=== PATIENT | male | born 1950 | race Caucasian/White ===

== ENCOUNTER → 2016-10-15 | Outpatient (CLI) | payer MEDICARE, OTHER ==
--- NOTE | 2016-10-15 10:07 | RADIOLOGY REPORT (SQ) ---
EXAM DESCRIPTION: CHEST PA/LATERAL COMPLETED DATE/TIME: 10/15/2016 9:55 am REASON FOR STUDY: PRE OP COMPARISON: None. EXAM PARAMETERS: NUMBER OF VIEWS: two views TECHNIQUE: Digital Frontal and Lateral radiographic views of the chest acquired. RADIATION DOSE: NA LIMITATIONS: none FINDINGS: LUNGS AND PLEURA: Scarring noted in the left lung base adjacent to the cardiac silhouette. There is mild interstitial prominence noted lung bases which could represent underlying chronic int erstitial disease. No focal consolidations. No pneumothorax. MEDIASTINUM AND HILAR STRUCTURES: No masses or contour abnormalities. HEART AND VASCULAR STRUCTURES: Heart normal size. No evidence for failure. BONES: No acute findings. HARDWARE: None in the chest. OTHER: No other significant finding. IMPRESSION: Mild chronic changes noted in the lung bases. No focal infiltrate. TECHNICAL DOCUMENTATION: JOB ID: [id number] [employer]- All Rights Reserved
[2016-10-15 10:08] LABS: ABSOLUTE BASOPHILS # (AUTO) 0.1 10^3/uL (0.0-0.2); ABSOLUTE EOSINOPHILS # (AUTO) 0.3 10^3/uL (0.0-0.6); ABSOLUTE LYMPHOCYTES (AUTO) 1.9 10^3/uL (0.5-4.7); ABSOLUTE NEUT (AUTO) 5.3 10^3/uL (1.7-8.2); EOSINOPHILS % (AUTO) 3.3 % (0-6); HEMATOCRIT 34.3 % (37.9-51.0); HGB HCT DIFFERENCE -1.3; LYMPHOCYTES % (AUTO) 21.7 % (13-45); MEAN CORPUSCULAR HEMOGLOBIN 24.9 pg (27.0-33.4); MEAN CORPUSCULAR HGB CONC 32.2 g/dL (32.0-36.0); MEAN CORPUSCULAR VOLUME 77 fl (80-97); MONOCYTES % (AUTO) 11.8 % (3-13); RED BLOOD COUNT 4.44 10^6/uL (4.35-5.55); RED CELL DISTRIBUTION WIDTH 17.8 % (11.5-14.0); SEGMENTED NEUTROPHILS % (AUTO) 62.2 % (42-78); WHITE BLOOD COUNT 8.5 10^3/uL (4.0-10.5)
[2016-10-15 10:36] LABS: ANION GAP 11 (5-19); BLOOD UREA NITROGEN 17 mg/dL (7-20); CALCIUM 9.3 mg/dL (8.4-10.2); CARBON DIOXIDE 25 mmol/L (22-30); CHLORIDE 103 mmol/L (98-107); CREATININE RESULT 1.06 mg/dL (0.52-1.25); GLUCOSE 154 mg/dL (75-110); POTASSIUM 4.3 mmol/L (3.6-5.0)
[2016-10-15 10:40] LABS: APPEARANCE,URINE CLEAR; BILIRUBIN,URINE NEGATIVE (NEGATIVE); GLUCOSE, URINE >=500 mg/dL (NEGATIVE); KETONES,URINE NEGATIVE (NEGATIVE); LEUKOCYTE ESTERASE,URINE NEGATIVE (NEGATIVE); NITRITE,URINE NEGATIVE (NEGATIVE); PROTEIN,URINE NEGATIVE (NEGATIVE); URINE SPECIFIC GRAVITY 1.017; UROBILINOGEN,URINE NEGATIVE mg/dL (<2.0)
--- NOTE | 2016-10-15 13:34 | EKG REPORT ---
SEVERITY:- NORMAL ECG - SINUS RHYTHM : Confirmed by: Benoit Killian MD 15-Oct-2016 13:33:33
== END ==
LOC: OD 09:14
PROVIDERS: ATTEND Orthopaedic Surgery
DX: Z01.810 Encounter for preprocedural cardiovascular examination (principal); Z01.812 Encounter for preprocedural laboratory examination; Z01.818 Encounter for other preprocedural examination
CPT/HCPCS: 36415; 71020; 80048; 81001; 85025; 93005; 93010

== ENCOUNTER 2016-11-03 07:00 | Inpatient (IN) | payer OTHER, MEDICARE ==
[~2016-11-03 07:00] MED LIST: BUPIVACAINE INJ/PF LIPOSOME/PF 266 MG/20 ML SDV INJ PRN; CEFAZOLIN INJ 1 GM VIAL IV PRN; IBUPROFEN 800 MG in NORMAL SALINE 250 ML IV PRN; LACTATED RINGERS 1000 ML IV PRN; LANSOPRAZOLE 15 MG TAB.RAP.DR PO PRN; LIDOCAINE 0.5% INJ-PF (5 MG/ML) 50 ML SDV SUBCUT PRN; OXYCODONE HCL SR 10 MG TABLET PO PRN; VANCOMYCIN HCL 1,000 MG in DEXTROSE 5%-WATER 250 ML IV PRN
[2016-11-03] MEDS ORDERED: ONDANSETRON HCL INJ/PF 4 MG/2 ML SDV ONE (07:39)
[2016-11-03] MEDS ORDERED: THROMBIN (BOVINE) TOPICAL 20000 UNIT VIAL ONE (11:38)
[2016-11-03] MEDS ORDERED: THROMBIN (BOVINE) 5000 UNIT EPITAXIS KIT ONE (11:38)
[2016-11-03] MEDS ORDERED: BUPIVACAINE INJ/PF LIPOSOME/PF 266 MG/20 ML SDV ONE (11:39)
[2016-11-03] MEDS ORDERED: KETAMINE HCL INJ 500 MG/10 ML VIAL ONE (12:00)
[2016-11-03] MEDS ORDERED: MIDAZOLAM 2 MG/2 ML INJ ONE (12:00)
[2016-11-03] MEDS ORDERED: TRANEXAMIC ACID INJ/PF 1,000 MG/10 ML SDV IV ONE ×2 (12:01→16:00)
[2016-11-03] MEDS ORDERED: PROPOFOL INJ 200 MG/20 ML VIAL IV ONE (12:01)
[2016-11-03] MEDS ORDERED: EPHEDRINE SULFATE INJ 50 MG/1 ML AMPULE ONE (12:01)
[2016-11-03] MEDS ORDERED: ONDANSETRON HCL INJ/PF 4 MG/2 ML SDV IV PRN (13:45)
[2016-11-03] MEDS ORDERED: DIPHENHYDRAMINE HCL 50 MG/ML VIAL IV PRN ×2 (13:45→13:47)
[2016-11-03] MEDS ORDERED: RINGERS SOLUTION,LACTATED 1,000 ML IV PRN (13:45)
[2016-11-03] MEDS ORDERED: MAG HYDROX/AL HYDROX/SIMETH SUSP 30 ML UDCUP PO PRN (13:45)
[2016-11-03] MEDS ORDERED: ACETAMINOPHEN 325 MG TABLET PO PRN (13:45)
[2016-11-03] MEDS ORDERED: MORPHINE SULFATE 10 MG/ML INJ IV PRN ×3 (13:45→13:47)
[2016-11-03] MEDS ORDERED: MORPHINE SULFATE 10 MG/ML INJ IM PRN (13:45)
[2016-11-03] MEDS ORDERED: ZOLPIDEM TARTRATE 5 MG TABLET PO PRN (13:45)
[2016-11-03] MEDS ORDERED: ONDANSETRON 4 MG TAB.RAPDIS PO PRN (13:45)
--- NOTE | 2016-11-03 13:45 | Operative Report ---
Operative Report DATE OF SURGERY: 11/03/16 PREOPERATIVE DIAGNOSIS: Right knee arthritis OPERATION: Right knee arthroplasty SURGEON: ARMIN WYNN 1ST WELLNESS COORDINATOR: ADELE EDMONDS ANESTHESIA: Spinal TISSUE REMOVED OR ALTERED: Bone to pathology ESTIMATED BLOOD LOSS: 100 PROCEDURE: Implants used: Femur: [place] triathlon #8 CR femur Tibia: 7 tibia Tibial liner: 9 mm CS insert Patella: 38 mm oval patella Procedure with the patient supine on the operating table the right the limb is prepped and draped in a sterile fashion. The limb was elevated for exsanguination and the tourniquet inflated to 280 torr. A standard midline median parapatellar approach the knee is taken. Access is gained to the femoral canal through the intercondylar notch. Intramedullary alignment instrumentation used to resect 10 mm of distal femur in 5 of valgus. Sizing guide indicated a size 8 femur. Appropriate cutting jig is then used to fashion anterior posterior and chamfer cuts. A trial reduction femurs performed and this is judged to be adequate. Attention was next turned to the tibia. Using an extra medullary alignment system 9 millimeters was resected off the lateral tibial plateau. This is sized to a size 7 tibia. A trial reduction was now performed with a 8 femur and a 7 tibia using a 9 millimeters spacer. It is full extension and central patellofemoral tracking. The articular surface the patella was next resected using an oscillating saw. All trial implants were removed. Polymethylmethacrylate is mixed and used to cement the above implants in place. On adequate curing the cement excess cement was removed the tourniquet was deflated hemostasis obtained the wound is then closed in layers using interrupted Vicryl followed by j carlos. A sterile compressive dressing was applied and the patient returned to recovery room in satisfactory condition.
[2016-11-03] MEDS ORDERED: PROMETHAZINE HCL INJ 25 MG/1 ML VIAL IV PRN ×2 (13:47)
[2016-11-03] MEDS ORDERED: OXYCODONE-ACETAMINOPHEN 5-325 MG TABLET PO PRN ×2 (13:47)
--- NOTE | 2016-11-03 15:10 | RADIOLOGY REPORT (SQ) ---
EXAM DESCRIPTION: KNEE RIGHT 2 VIEWS COMPLETED DATE/TIME: 11/03/2016 2:40 pm REASON FOR STUDY: Post OP -Long Cassette in PACU M17.11 UNILATERAL PRIMARY OSTEOARTHRITIS, RIGHT KN EE COMPARISON: None. NUMBER OF VIEWS: Two views. TECHNIQUE: AP and lateral radiographic images acquired of the right knee. LIMITATIONS: None. FINDINGS: Postoperative images show a right hip arthroplasty in good position. IMPRESSION: Right hip arthroplasty good position. TECHNICAL DOCUMENTATION: JOB ID: [id number] [employer]- All Rights Reserved
[2016-11-03] MEDS: SENNOSIDES/DOCUSATE 8.6-50 MG 1 EACH TABLET PO SCH (17:26)
[2016-11-03] MEDS: MORPHINE SULFATE 10 MG/ML INJ IV PRN ×4 (17:27→23:05)
[2016-11-03] MEDS: OXYCODONE HCL IR 5 MG TABLET PO PRN (17:46)
[2016-11-03] MEDS: BUDESONIDE/FORMOTEROL 160-4.5 MCG 60 PUFF/6 GM MDI IH SCH (21:19)
[2016-11-03] MEDS: RIVAROXABAN 10 MG TABLET PO SCH (21:19)
[2016-11-03] MEDS ORDERED: OXYCODONE HCL SR 10 MG TABLET PO SCH (22:00)
[2016-11-03] MEDS: IBUPROFEN 800 MG in NORMAL SALINE 250 ML IV SCH (22:59)
[2016-11-04] MEDS: MORPHINE SULFATE 10 MG/ML INJ IV PRN ×4 (00:50→13:40)
[2016-11-04] MEDS ORDERED: VANCOMYCIN HCL 1,000 MG in DEXTROSE 5%-WATER 250 ML IV ONE (02:00)
[2016-11-04] MEDS: IBUPROFEN 800 MG in NORMAL SALINE 250 ML IV SCH ×3 (05:25→21:24)
[2016-11-04] MEDS: LANSOPRAZOLE 30 MG TAB.RAP.DR PO SCH (05:25)
[2016-11-04 06:19] LABS: HEMATOCRIT 30.1 % (37.9-51.0); HEMOGLOBIN 9.4 g/dL (13.5-17.0); HGB HCT DIFFERENCE -1.9; MEAN CORPUSCULAR HEMOGLOBIN 24.5 pg (27.0-33.4); MEAN CORPUSCULAR HGB CONC 31.2 g/dL (32.0-36.0); MEAN CORPUSCULAR VOLUME 78 fl (80-97); RED BLOOD COUNT 3.84 10^6/uL (4.35-5.55); RED CELL DISTRIBUTION WIDTH 17.5 % (11.5-14.0); WHITE BLOOD COUNT 9.2 10^3/uL (4.0-10.5)
[2016-11-04 06:35] LABS: ANION GAP 8 (5-19); BLOOD UREA NITROGEN 15 mg/dL (7-20); CALCIUM 8.8 mg/dL (8.4-10.2); CARBON DIOXIDE 26 mmol/L (22-30); CHLORIDE 100 mmol/L (98-107); CREATININE RESULT 1.01 mg/dL (0.52-1.25); GLUCOSE 113 mg/dL (75-110); POTASSIUM 4.5 mmol/L (3.6-5.0); SODIUM 133.8 mmol/L (137-145)
--- NOTE | 2016-11-04 07:03 | PDOC PROGRESS REPORT ---
Subjective Progress Note for:: 11/04/16 Subjective:: 66-year-old white male status post a 1 right total knee arthroplasty. Patient was lying comfortably recumbent in hospital bed with surgical compression dressing still in place. Patient reports that his pain is not well controlled and he is requesting medication every hour. He is also experiencing occasional pain in the proximal right lower extremity. Patient was informed that this is the location of the surgical tourniquet and that residual pain can be common due to the pressure applied during surgery. Patient notes that he was not ambulatory yesterday but is working on right lower extremity mobility in his ankle as well as lifting the right lower extremity off the bed. Physical Exam Vital Signs: Temp Pulse Resp BP Pulse Ox 36.8 C 96 17 116/81 94 11/04/16 04:04 11/04/16 04:04 11/04/16 04:04 11/04/16 04:04 11/04/16 04:04 Intake & Output 11/02/16 11/03/16 11/04/16 06:59 06:59 06:59 Intake Total 7250 Output Total 6000 Balance 1250 General appearance: PRESENT: no acute distress, well-developed, well-nourished Head exam: PRESENT: atraumatic, normocephalic Vascular exam: PRESENT: normal capillary refill Additional comments: Patient was nonambulatory postop day 1 but will continue to work with physical therapy to improve mobility and strength of right lower extremity. Neurological exam: PRESENT: alert, awake, oriented to person, oriented to place , oriented to time, oriented to situation, CN II-XII grossly intact. ABSENT: motor sensory deficit Psychiatric exam: PRESENT: appropriate affect, normal mood. ABSENT: homicidal ideation, suicidal ideation Skin exam: PRESENT: dry, intact, warm. ABSENT: cyanosis, rash Results Laboratory Results: 11/04/16 05:27 11/04/16 05:27 11/04/16 11/04/16 05:27 05:27 WBC 9.2 RBC 3.84 L Hgb 9.4 L Hct 30.1 L MCV 78 L MCH 24.5 L MCHC 31.2 L RDW 17.5 H Plt Count 281 Sodium 133.8 L Potassium 4.5 Chloride 100 Carbon Dioxide 26 Anion Gap 8 BUN 15 Creatinine 1.01 Est GFR ( Amer) > 60 Est GFR (Non-Af Amer) > 60 Glucose 113 H Calcium 8.8 Impressions: Knee X-Ray 11/03/16 13:47 IMPRESSION: Right hip arthroplasty good position. Assessment & Plan - Diagnosis (1) Arthritis of right hip Is this a current diagnosis for this admission?: Yes Plan: Patient will continue to work with physical therapy on postop day 1 and 2 and work towards ambulation as well as increasing strength and mobility of right lower extremity. Patient's pain will be controlled by increasing oxycodone dosage. Patient's surgical compression dressing will be removed on postop day 2 and we will work for discharge on this day as well. Patient will then follow- up with [facility] for surgery 2 weeks postoperatively.
[2016-11-04] MEDS: BUDESONIDE/FORMOTEROL 160-4.5 MCG 60 PUFF/6 GM MDI IH SCH ×2 (07:45→21:24)
[2016-11-04] MEDS ORDERED: TIOTROPIUM BROMIDE DPI 5 CAP/KIT (18 MCG/CAP) IH SCH (10:00)
[2016-11-04] MEDS ORDERED: PRENATAL VITAMIN W-O CA NO5/FE FUMARATE/FA CAPSULE PO SCH (10:00)
[2016-11-04] MEDS: OXYCODONE HCL IR 5 MG TABLET PO PRN ×2 (10:17→17:38)
[2016-11-04] MEDS: OXYCODONE HCL SR 40 MG TABLET PO SCH ×2 (10:18→21:24)
[2016-11-04] MEDS: SENNOSIDES/DOCUSATE 8.6-50 MG 1 EACH TABLET PO SCH ×2 (10:19→17:39)
[2016-11-04] MEDS ORDERED: IPRATROPIUM/ALBUTEROL 0.5-2.5 MG/3 ML AMPUL NEB ONE (18:04)
[2016-11-04] MEDS ORDERED: IPRATROPIUM/ALBUTEROL 0.5-2.5 MG/3 ML AMPUL NEB PRN (18:06)
[2016-11-04] MEDS: RIVAROXABAN 10 MG TABLET PO SCH (21:24)
[2016-11-05 02:08] VITALS: BP 145/73
[2016-11-05] MEDS: IBUPROFEN 800 MG in NORMAL SALINE 250 ML IV SCH (05:11)
[2016-11-05] MEDS: LANSOPRAZOLE 30 MG TAB.RAP.DR PO SCH (05:11)
[2016-11-05 06:08] LABS: HEMATOCRIT 28.3 % (37.9-51.0); HGB HCT DIFFERENCE -1.3; MEAN CORPUSCULAR HEMOGLOBIN 24.8 pg (27.0-33.4); MEAN CORPUSCULAR HGB CONC 31.6 g/dL (32.0-36.0); MEAN CORPUSCULAR VOLUME 79 fl (80-97); RED BLOOD COUNT 3.61 10^6/uL (4.35-5.55); RED CELL DISTRIBUTION WIDTH 17.9 % (11.5-14.0); WHITE BLOOD COUNT 12.6 10^3/uL (4.0-10.5)
--- NOTE | 2016-11-05 07:36 | PDOC DISCHARGE SUMMARY ---
General - Admit/Disc Date/PCP Admission Date/Primary Care Provider: 11/03/16 10:09 CARRIE العراقي NP Discharge Date: 11/05/16 - Discharge Diagnosis (1) Arthritis of right knee Is this a current diagnosis for this admission?: Yes - Additional Information Resuscitation Status: Full Code Discharge Diet: As Tolerated, Regular Discharge Activity: Balance Activity w/Rest, No Driving, No tub bath Home Medications: Tiotropium [place] [Spiriva Handihaler 18 mcg/dose (30 Dose)] 2 puff IH DAILY Budesonide/Formoterol Fumarate [Symbicort HFA 160-4.5 mcg Inhaler 6 gm] 2 puff IH Q12 10/28/16 Omeprazole 40 mg PO BID 10/28/16 Oxycodone HCl [Oxy-Ir 5 mg Tablet] 5 mg PO Q6HP PRN tablet 11/05/16 Rivaroxaban [Xarelto 10 mg Tablet] 10 mg PO QHS tablet 11/05/16 History of Present Illness History of Present Illness: JESSICA NI is a 66 year old male with progressive right knee pain and functional disability secondary osteoarthritis. Patient is admitted for elective right knee arthroplasty. Hospital Course Hospital Course: Patient is admitted through the operating where he undergoes an uncomplicated right knee arthroplasty. Is returned to the floor and seen by physical therapy for weightbearing as tolerated ambulation. Initial analgesia is slightly problematic but the patient makes rapid progress with physical therapy thereafter. Subsequently for discharge home with home health nursing, home health physical therapy, rachele bill commode. Physical Exam Vital Signs: Temp Pulse Resp BP Pulse Ox 37.5 C 114 H 18 146/69 H 92 11/05/16 00:54 11/05/16 00:54 11/05/16 00:54 11/05/16 00:54 11/05/16 00:54 Intake & Output 11/04/16 11/05/16 11/06/16 06:59 06:59 06:59 Intake Total 7250 6117 Output Total 6000 200 Balance 1250 5917 General appearance: PRESENT: no acute distress Head exam: PRESENT: normocephalic Respiratory exam: PRESENT: unlabored Cardiovascular exam: PRESENT: RRR Pulses: PRESENT: +1 pedal pulses bilateral Vascular exam: PRESENT: normal capillary refill GI/Abdominal exam: PRESENT: soft Rectal exam: PRESENT: deferred Extremities exam: PRESENT: other - Right lower extremity picot dressing clean dry and intact. There is a small amount of pedal edema. Distal neurovascular examination is intact. Neurological exam: PRESENT: alert, awake, oriented to person, oriented to place , oriented to time, oriented to situation. ABSENT: motor sensory deficit Psychiatric exam: PRESENT: appropriate affect, normal mood. ABSENT: homicidal ideation, suicidal ideation Skin exam: PRESENT: dry, intact, warm. ABSENT: cyanosis, rash Results Laboratory Results: 11/05/16 05:41 11/04/16 05:27 11/05/16 05:41 WBC 12.6 H RBC 3.61 L Hgb 9.0 L Hct 28.3 L MCV 79 L MCH 24.8 L MCHC 31.6 L RDW 17.9 H Plt Count 263 Impressions: Knee X-Ray 11/03/16 13:47 IMPRESSION: Right hip arthroplasty good position. Status: Imported from PACS Plan Discharge Plan: 66-year-old white male status post right knee arthroplasty now for discharge home with home health nursing, home health physical therapy, wheeled walker, bedside commode. Visiting nurse service to change the right knee picot dressing on postop day 7 and replaced with an OpSite. Follow-up will be with Dr. Nassar in the [facility] for surgery in 2 weeks for staple removal.
== END 2016-11-05 08:47 | disposition home health service (06) | DRG 470 ==
LOC: INOR 10:09 → 4S 15:20
PROVIDERS: ADMIT Orthopaedic Surgery; ATTEND Orthopaedic Surgery
PROC: 0SRC0J9 Replacement of Right Knee Joint with Synthetic Substitute, Cemented, Open Approach (ICD-10-PCS; principal; 2016-11-03 12:30)
DX: M17.11 Unilateral primary osteoarthritis, right knee (principal); J44.9 Chronic obstructive pulmonary disease, unspecified; K21.9 Gastro-esophageal reflux disease without esophagitis; F17.210 Nicotine dependence, cigarettes, uncomplicated
CPT/HCPCS: 01402; 36415; 80048; 82962; 85027; 88304; 88311; 94640; 94799; C2625; C9290; G8978-GP; G8979-GP; G8987-GO; G8988-GO; J0690; J1741; J2250; J2270; J2405; J2704; J3370; J3490; J7050; J7060; J7620; S0119

== ENCOUNTER → 2017-09-09 | Outpatient (CLI) | payer MEDICARE, OTHER ==
--- NOTE | 2017-09-09 12:31 | RADIOLOGY REPORT (SQ) ---
EXAM DESCRIPTION: SMALL BOWEL SERIES COMPLETED DATE/TIME: 09/09/2017 11:47 am REASON FOR STUDY: IRON DEFICIENCY ANEMIA, UNSPECIFIED (D50.9) D50.9 IRON DEFICIENCY ANEMIA, UNSPECI FIED COMPARISON: None. FLUOROSCOPY TIME: 1 minutes 23 seconds 22 digital images saved to PACS. LIMITATIONS: None. PROCEDURE: Initial senior director image of abdomen acquired, followed by administration of oral contrast. Se rial radiographic images acquired. Fluoroscopic images recorded of the terminal ileum and other karissa cated areas. All images stored on PACS. FINDINGS: EVP OF [employer] KUB: Non-obstructive bowel pattern. No abnormal calcifications. Soft tissue planes normal. STOMACH: No significant reflux. Normal distention without abnormality. DUODENUM: Normal mucosal pattern with adequate distention. No displacement or obstruction. JEJUNUM: Normal mucosal pattern. No dilatation, segmentation, strictures or masses. ILEUM: Normal mucosal pattern. No dilatation, segmentation, strictures or masses. TERMINAL ILEUM AND ILEO-CECAL VALVE: Normal mucosal pattern without "cobble-stoning" or stricture. N ormal compression. PROXIMAL COLON: Incompletely imaged. No abnormality. OTHER: No other significant finding. IMPRESSION: NORMAL SMALL BOWEL EXAM. COMMENT: Quality ID [id number]: Final reports for procedures using fluoroscopy that document radiation exp osure indices, or exposure time and number of fluorographic images (if radiation exposure indices are not available) TECHNICAL DOCUMENTATION: JOB ID: [id number] [employer]- All Rights Reserved Reading location - IP/workstation name: [email or web address]
== END ==
LOC: RAD 07:44
PROVIDERS: ATTEND Internal Medicine Gastroenterology
DX: D50.9 Iron deficiency anemia, unspecified (principal)
CPT/HCPCS: 74250